=== PATIENT | male | born 1970 | race Caucasian/White ===

== ENCOUNTER 2021-08-25 12:54 | Inpatient (IN) | payer OTHER ==
[~2021-08-25] VITALS: Ht 175.3 cm; Wt 105.2 kg
--- NOTE | 2021-08-25 12:54 | NUR ---
PT BIBPA FROM [facility] C/O DIARRHEA AND LOSS OF APPETITE. COVID + 08/21/2021. PT IS AAOX4, NOT IN RESPIRATORY DISTRESS, V/S STABLE, KEPT RESTED AND COMFORTABLE. WILL CONTINUE TO MONITOR.
[2021-08-25] MEDS ORDERED: VITA1TAB56 PO (12:58)
[2021-08-25] MEDS ORDERED: SACU1TAB7 PO (12:58)
[2021-08-25] MEDS ORDERED: FURO-144 PO (12:58)
[2021-08-25] MEDS ORDERED: ASPI-1169 PO (12:58)
[2021-08-25] MEDS ORDERED: CARV6.252 PO (12:58)
[2021-08-25] MEDS ORDERED: SPIR25TA6 PO (12:58)
[2021-08-25] MEDS ORDERED: ATOR10TA PO (12:58)
--- NOTE | 2021-08-25 13:00 | NUR ---
POX 98% ON 3L N/C
--- NOTE | 2021-08-25 13:40 | NUR ---
MOVE SHEET SUBMITTED AND CALLED FOR TELE BED.
[2021-08-25] MEDS ORDERED: DEXAMETHASONE SOD PHOSPHATE 6 MG in IV D5W 50 ML IV ONE (14:00)
[2021-08-25] MEDS ORDERED: DEXAMETHASONE SOD PHOSPHATE 4 MG/ML VIAL IV ONE (14:00)
[2021-08-25] MEDS ORDERED: DEXAMETHASONE SOD PHOSPHATE 10 MG/ML VIAL ONE (14:06)
[2021-08-25] MEDS ORDERED: CEFTRIAXONE 1 G in IV D5W 50 ML IV ONE (14:30)
[2021-08-25 14:40] LABS: BASOPHILS % (AUTO) 0.3 % (0.0-2.0); EOSINOPHILS % (AUTO) 0.3 % (0.0-6.0); HEMATOCRIT 41 % (39-51); HEMOGLOBIN 13.1 g/dL (13.5-17.5); LYMPHOCYTES % (AUTO) 15.4 % (20.0-44.0); MEAN CORPUSCULAR HGB CONC 32 g/dl (31.0-36.0); MEAN CORPUSCULAR VOLUME 80 fL (80-96); MONOCYTES # (AUTO) 0.6 K/uL (0.1-1.30); MONOCYTES % (AUTO) 9.1 % (2.0-12.0); NEUTROPHILS # (AUTO) 4.8 K/uL (1.8-8.9); NEUTROPHILS % (AUTO) 74.9 % (43.0-81.0); PLATELET COUNT (AUTO) 142 K/uL (150-450); RED BLOOD CELL COUNT(AUTO) 5.05 MIL/uL (4.5-6.0); WHITE BLOOD COUNT (AUTO) 6.4 K/uL (4.3-11.0)
[2021-08-25 15:01] LABS: CALCIUM, SERUM 8.4 mg/dL (8.5-10.1); CARBON DIOXIDE 26 mmol/L (21-32); CHLORIDE 97 mmol/L (98-107); POTASSIUM 4.1 mmol/L (3.5-5.1); SODIUM SERUM 133 mmol/L (136-145); UREA NITROGEN, BLOOD 30 mg/dL (7-18)
[2021-08-25 15:04] LABS: CREATINE KINASE, TOTAL 79 U/L (39-308)
[2021-08-25 15:07] LABS: GLUCOSE 366 mg/dL (74-106)
[2021-08-25 15:13] LABS: ALANINE AMINOTRANSFERASE 25 U/L (12-78); ALKALINE PHOSPHATASE 78 U/L (46-116); ASPARTATE AMINOTRANSFERASE 24 U/L (15-37); BILIRUBIN,TOTAL 0.6 mg/dL (0.2-1.0); TOTAL PROTEIN, SERUM 7.5 g/dL (6.4-8.2)
--- NOTE | 2021-08-25 15:31 | NUR ---
URINE COLLECTED AND SENT TO LAB
--- NOTE | 2021-08-25 15:38 | NUR ---
bs 366. aware
[2021-08-25] MEDS ORDERED: ACETAMINOPHEN 325 MG TABLET PO PRN (16:00)
[2021-08-25] MEDS ORDERED: *INSULIN REGULAR(HUMULIN R)HUM 100 UNIT/ML VIAL SQ PRN (16:00)
[2021-08-25] MEDS ORDERED: DEXTROSE 50%-WATER 50 ML DISP.SYRIN IV PRN (16:00)
[2021-08-25] MEDS ORDERED: ONDANSETRON HCL/PF 4 MG/2 ML VIAL IVP PRN (16:00)
[2021-08-25] MEDS ORDERED: IV NS 0.9% 1,000 ML BAG IV ONE (16:00)
[2021-08-25] MEDS ORDERED: INSULIN REGULAR, HUMAN 100 UNIT/ML 10 ML VIAL SQ ONE (16:00)
[2021-08-25] MEDS ORDERED: INSULIN REGULAR, HUMAN 100 UNIT/ML 10 ML VIAL ONE (16:32)
--- NOTE | 2021-08-25 17:01 | NUR ---
BED 117-1
--- NOTE | 2021-08-25 17:01 | NUR ---
117-1. PRIMARY RN AWARE.
--- NOTE | 2021-08-25 17:30 | NUR ---
REPORT GIVEN TO ROLO SANDS
--- NOTE | 2021-08-25 17:38 | NUR ---
PT TRANSFERRED TO FLOOR FOLLOWING ACLS PROTOCL. WITH RN AND EMT.
--- NOTE | 2021-08-25 18:00 | NUR ---
RN ADMITTING NOTES RECEIVED PATIENT FROM ER DEPT VIA [facility]. PATIENT DX OF CIVD 19 PNA, HYPOXIA, RENAL INSUFFICIENCY. PATIENT ABLE TO AMBULATE TO BED FROM [facility]. PATIENT IS AWAKE, ALERT/ORIENTED X 4, ABLE TO MAKE NEEDS KNOWN. ON O2 2LPM VIA NC, TOLERATING WELL SATTING AT 97%. VITAL SIGNS: TEMP-98.3, BP-125/71, HR-89, RR-19. BREATHING EVEN AND UNLABORED. NO SOB OR ANY DISTRESS NOTED AT THE TIME. PATIENT HAS PACEMAKER ON LEFT UPPER CHEST. PATIENT NOTED WITH REDNESS ON LEFT/RIGHT GROIN. SKIN INTACT. IV ACCESS ON LEFT HAND #20G, FLUSHED PATENT AND INTACT. ALL APPLICABLE ISOLATION PRECAUTIONS IN PLACE. ALL SAFETY MEASURES IN PLACE. BED LOCKED AND IN LOWEST POSITION WITH SIDERAILS UP, CALL LIGHT WITHIN REACH. WILL CONTINUE TO MONITOR PATIENT ACCORDINGLY.
[2021-08-25] MEDS: DEXAMETHASONE SOD PHOSPHATE 10 MG/ML VIAL IV SCH (18:24)
[2021-08-25] MEDS: CARVEDILOL 6.25 MG TABLET PO SCH (18:24)
[2021-08-25] MEDS: HEPARIN SODIUM, PORCINE 5000 UNITS/1 ML VIAL SQ SCH (18:25)
--- NOTE | 2021-08-25 18:30 | NUR ---
RN NOTE CALLED PHARMACY FOR INSULIN, PER PHARMACY WILL BRING TO UNIT.
[2021-08-25] MEDS: BLOOD SUGAR DIAGNOSTIC 1 EACH STRIP VI SCH ×2 (18:49→22:04)
[2021-08-25] MEDS ORDERED: CEFTRIAXONE 1 G in IV D5W 50 ML IV SCH (19:00)
--- NOTE | 2021-08-25 19:30 | NUR ---
IT SALES REPRESENTATIVEVP ANCILLARY/OPENING NOTE RECEIVED PATIENT ALREADY IN ROOM. NO S/S OF APPARENT DISTRESS ON 2LPM OF O2 VIA NC, DENIES SOB. DENIES PAIN. ID BAND ON PATIENT. INTACT SKIN. BELONGINGS LIST CHECKED AND SIGNED. WISHES TO BE FULL CODE. TELE MONITOR READING SR WITH PVC'S 84 BPM. PATIENT DENIES SMOKING AND ANY SUBSTANCE ABUSE. PER PATIENT HE IS VACCINATED WITH PNU VACCINE LAST YEAR BUT NOT FLU AND COVID. WILL DO THE ADMISSION PROCESS AND FOLLOW THROUGH DOCTOR'S ORDERS. NEEDS ATTENDED AT THIS TIME.
--- NOTE | 2021-08-25 19:32 | NUR ---
RN CLOSING NOTES PATIENT REMAINS IN STABLE CONDITION THROUGHOUT. BREATHING EVEN AND UNLABORED. NO SOB OR ANY ACUTE DISTRESS NOTED. ON O2 2LPM VIA NC, TOLERATING WELL. IV ACCESS ON LEFT HAND, PATENT AND INTACT. NO SIGNS OF INFILTRATIONS. ALL DUE MEDS GIVEN ORDERED. KEPT PATIENT CLEAN, DRY AND COMFORTABLE. ALL NEEDS ATTENDED. ALL APPLICABLE ISOLATION PRECAUTIONS IN PLACE. ALL SAFETY MEASURES MAINTAINED. BED LOCKED AND IN LOWEST POSITION WITH SIDERAILS UP. CALL LIGHT WITHIN REACH. ENDORSED TO ONCOMING NURSE FOR KAREN. Addendum: 08/25/21 at 1933 by WICHO COFFEY RN STILL AWAITING FOR PHARMACY TO BRING INSULIN, ENDORSED TO ONCOMING NURSE.
[2021-08-25 22:48] LABS: BILIRUBIN,URINE MODERATE (NEGATIVE); COLOR,URINE YELLOW (YELLOW); LEUKOCYTE ESTERASE ,URINE NEGATIVE (NEGATIVE); NITRITE, URINE NEGATIVE (NEGATIVE); PROTEIN,URINE 100 mg/dl (NEGATIVE); UGLUCOSE 500 MG/DL mg/dL (NEGATIVE)
[2021-08-26 07:14] LABS: BASOPHILS % (AUTO) 0.2 % (0.0-2.0); HEMATOCRIT 41 % (39-51); HEMOGLOBIN 13.3 g/dL (13.5-17.5); LYMPHOCYTES # (AUTO) 0.8 K/uL (0.8-4.8); LYMPHOCYTES % (AUTO) 16.8 % (20.0-44.0); MEAN CORPUSCULAR HGB CONC 32 g/dl (31.0-36.0); MEAN CORPUSCULAR VOLUME 80 fL (80-96); MONOCYTES # (AUTO) 0.3 K/uL (0.1-1.30); MONOCYTES % (AUTO) 6.3 % (2.0-12.0); NEUTROPHILS # (AUTO) 3.9 K/uL (1.8-8.9); NEUTROPHILS % (AUTO) 76.7 % (43.0-81.0); PLATELET COUNT (AUTO) 144 K/uL (150-450); RED BLOOD CELL COUNT(AUTO) 5.11 MIL/uL (4.5-6.0)
--- NOTE | 2021-08-26 07:15 | NUR ---
RN OPENING NOTES RECEIVED PATIENT IN BED AWAKE, ALERT/ORIENTED X 4, ABLE TO MAKE NEEDS KNOWN. ON O2 2LPM VIA NC. BREATHING EVEN AND UNLABORED. NO SOB OR ANY DISTRESS NOTED AT THE TIME. DENIES ANY PAIN/DISCOMFORT AT THE TIME. IV ACCESS ON LEFT HAND #20G, FLUSHED PATENT AND INTACT. ALL APPLICABLE ISOLATION PRECAUTIONS IN PLACE. ALL SAFETY MEASURES IN PLACE. BED LOCKED AND IN LOWEST POSITION WITH SIDERAILS UP, CALL LIGHT WITHIN REACH. WILL CONTINUE TO MONITOR PATIENT ACCORDINGLY.
--- NOTE | 2021-08-26 07:25 | NUR ---
FIELD SCOUT CLOSING NOTE PATIENT IN BED WITH EYES CLOSED, EASY TO AROUSE. NO S/S OF APPARENT DISTRESS ON ROOM AIR. TELE MONITOR READING SR. NO C/O PAIN AT THIS TIME. NO FLUIDS RUNNING AT THIS TIME. SAFETY KEPT IN PLACE THE WHOLE SHIFT. ALL NEEDS ATTENDED. ALL SCHEDULED MEDICATIONS ADMINISTERED. ISOLATION STRICTLY FOLLOWED. WILL ENDORSE TO MORNING SHIFT RN FOR CONTINUITY OF CARE.
[2021-08-26 07:37] LABS: BACTERIA,URINE Rare /HPF (None Seen); CALCIUM OXALATE CRYSTALS,UR Few /HPF (None Seen); SQUAMOUS EPITHELIAL CELL,UR Rare /HPF (None Seen); WBC,URINE 0-2 /HPF (0-3)
[2021-08-26 07:38] LABS: URINE AMORPHOUS URATE Few /HPF (None Seen)
[2021-08-26 07:42] LABS: ALBUMIN 2.9 g/dL (3.4-5.0); BILIRUBIN,TOTAL 0.4 mg/dL (0.2-1.0); CALCIUM, SERUM 9.3 mg/dL (8.5-10.1); CREATININE 1.6 mg/dL (0.6-1.3); PHOSPHORUS 4.3 mg/dL (2.5-4.9); POTASSIUM 4.4 mmol/L (3.5-5.1); TOTAL PROTEIN, SERUM 7.6 g/dL (6.4-8.2)
[2021-08-26 07:49] LABS: THYROID STIMULATING HORMONE 0.481 uIU/mL (0.358-3.74)
[2021-08-26] MEDS: BLOOD SUGAR DIAGNOSTIC 1 EACH STRIP VI SCH ×2 (07:52→11:41)
[2021-08-26] MEDS: INSULIN REGULAR, HUMAN 100 UNIT/ML 3 ML VIAL SQ PRN ×2 (07:54→11:43)
[2021-08-26 08:00] VITALS: BP 141/93
[2021-08-26] MEDS: VITAMIN B COMP W-C 1 TAB TABLET PO SCH (08:53)
[2021-08-26] MEDS: CARVEDILOL 6.25 MG TABLET PO SCH ×2 (08:53→16:39)
[2021-08-26] MEDS: ATORVASTATIN 10 MG TABLET PO SCH (08:53)
[2021-08-26] MEDS: FUROSEMIDE 40 MG TABLET PO SCH (08:53)
[2021-08-26] MEDS: SPIRONOLACTONE 25 MG TABLET PO SCH (08:53)
[2021-08-26] MEDS: ASPIRIN 81 MG TAB.CHEW PO SCH (08:53)
[2021-08-26] MEDS: ENTRESTO PO SCH ×2 (08:54→16:39)
[2021-08-26] MEDS: DEXAMETHASONE SOD PHOSPHATE 10 MG/ML VIAL IV SCH ×2 (08:54→16:39)
[2021-08-26] MEDS: HEPARIN SODIUM, PORCINE 5000 UNITS/1 ML VIAL SQ SCH ×2 (08:55→16:40)
[2021-08-26 12:00] VITALS: BP 135/81
[2021-08-26] MEDS: CEFTRIAXONE 1 G in IV D5W 50 ML IV SCH (12:05)
[2021-08-26] MEDS ORDERED: DEXTROSE 50%-WATER 50 ML DISP.SYRIN IV PRN (12:30)
--- NOTE | 2021-08-26 14:03 | NUR ---
SS Consult: SS consult for homelessness. Pt. Is a 51-year-old male. Pt. demonstrates adequate insight to the reason for hospitalization. Per pt., he was brought to hospital by ambulance due to pneumonia and COVID positive. Pt. was oriented x4, alert, and cooperative. During interview, pt. was capable of following directions, made appropriate eye-contact, and appeared well-groomed. Pt.s speech was at a normal rate. Pt.s mood was elevated. SW explored pt.s hx of mental health and substance abuse. Pt. reported no hx of mental health, substance abuse, suicidal or homicidal ideation. Pt. denies auditory hallucinations, visual hallucinations, paranoia, or delusions. SW explored pt.s living situation. Per pt., he lives at a halfway [, [address] [place] [address]. [place] [address]]. Pt. mentioned that he has been staying at the halfway since February of 2021. Per pt., since he tested positive for COVID, the halfway sent him to [facility] to stay until he test negative. While his stay at the [facility], his oxygen levels were low, so they sent him to the hospital. Pt. stated that he is feeling better. Per pt., he reports having adequate support from his son Akil [[phone]]. Plan: SW provided available resources and pt. rejects interest at this time. Once discharge, per pt., he will return to [facility]. Homeless waiver was signed and placed in pt.s chart.
[2021-08-26] MEDS ORDERED: REMDESIVIR (CHARGED) 200 MG, *LOADING DOSE 1 EA in IV NS 0.9% 210 ML IV ONE (15:00)
[2021-08-26] MEDS: AZITHROMYCIN 250 MG TABLET PO SCH (15:06)
[2021-08-26 16:00] VITALS: BP 112/65
[2021-08-26 16:20] LABS: FERRITIN 701 ng/mL (8-388)
[2021-08-26] MEDS: BLOOD SUGAR DIAGNOSTIC 1 EACH STRIP IN SCH ×2 (17:56→21:57)
[2021-08-26] MEDS: *INSULIN REGULAR(HUMULIN R)HUM 100 UNIT/ML VIAL SQ PRN ×2 (17:58→21:51)
--- NOTE | 2021-08-26 18:30 | NUR ---
RN CLOSING NOTES PATIENT REMAINS IN STABLE CONDITION THROUGHOUT SHIFT. PATIENT IN BED AWAKE, ALERT/ORIENTED X 4, ABLE TO MAKE NEEDS KNOWN. ON O2 2LPM VIA NC. BREATHING EVEN AND UNLABORED. NO SOB OR ANY DISTRESS NOTED AT THE TIME. DENIES ANY PAIN/DISCOMFORT AT THE TIME. ALL DUE MEDS GIVEN ORDERED. KEPT PATIENT CLEAN, DRY AND COMFORTABLE. ALL NEEDS ATTENDED. IV ACCESS ON LEFT HAND #20G, FLUSHED PATENT AND INTACT. ALL APPLICABLE ISOLATION PRECAUTIONS IN PLACE. ALL SAFETY MEASURES IN PLACE. BED LOCKED AND IN LOWEST POSITION WITH SIDERAILS UP, CALL LIGHT WITHIN REACH. WILL ENDORSE TO ONCOMING NURSE FOR CONTINUITY OF CARE.
--- NOTE | 2021-08-26 19:08 | NUR ---
RN NOTES RECEIVED REPORT FROM LABORATORY, PATIENT PCR TEST POSITIVE
--- NOTE | 2021-08-26 19:30 | NUR ---
RN OPENING NOTE PATIENT IN BED, A/O X 4. PATIENT AMBULATED TO BATHROOM. PATIENT HAS 2LPM VIA NC ON, TOLERATES WELL. NO REPORTS OF DYSPNEA. TELE MONITOR READS SR 83 BPM. ML HAND 20G PATENT AND INTACT, FLUSHES WELL. PATIENT ON ISOLATION PRECAUTION D/T POSITIVE COVID RESULT. NO COMPLAINTS OF PAIN AT THIS TIME. SAFETY MEASURES IN PLACE: BED LOCKED AND IN LOWEST POSITION, CALL LIGHT WITHIN REACH, SIDE RAILS UP. WILL CONTINUE TO MONITOR CLOSELY.
[2021-08-26 20:00] VITALS: BP 111/63
--- NOTE | 2021-08-26 22:00 | NUR ---
RN NOTE BS 360 MG/DL 10 UNITS INSULIN GIVEN FOR COVERAGE. WILL MONITOR FOR HYPO/HYPERGLYCEMIA.
[2021-08-27] VITALS: BP 114/82
[2021-08-27 04:00] VITALS: BP 126/78
[2021-08-27 06:50] LABS: BASOPHILS % (AUTO) 0.2 % (0.0-2.0); HEMATOCRIT 40 % (39-51); HEMOGLOBIN 13.1 g/dL (13.5-17.5); MEAN CORPUSCULAR HGB CONC 33 g/dl (31.0-36.0); MEAN CORPUSCULAR VOLUME 80 fL (80-96); MONOCYTES # (AUTO) 0.6 K/uL (0.1-1.30); MONOCYTES % (AUTO) 5.8 % (2.0-12.0); PLATELET COUNT (AUTO) 184 K/uL (150-450); WHITE BLOOD COUNT (AUTO) 9.5 K/uL (4.3-11.0)
--- NOTE | 2021-08-27 07:01 | NUR ---
RN CLOSING NOTE PATIENT IN BED, A/O X 4 SLEEPING BUT EASILY AWAKENED. PATIENT HAS 2LPM VIA NC ON, TOLERATES WELL. NO REPORTS OF DYSPNEA. TELE MONITOR READS SR 85 BPM. L HAND 20G PATENT AND INTACT, FLUSHES WELL. NO COMPLAINTS OF PAIN AT THIS TIME. PATIENT GIVEN COLLECTION CUP FOR STOOL CX. SAFETY MEASURES IN PLACE: BED LOCKED AND IN LOWEST POSITION, CALL LIGHT WITHIN REACH, SIDE RAILS UP. ALL NEEDS MET AND ATTENDED, ALL ORDERS CARRIED OUT. WILL ENDORSE TO DAY SHIFT NURSE FOR KAREN.
[2021-08-27 07:17] LABS: ALBUMIN 2.8 g/dL (3.4-5.0); BILIRUBIN,DIRECT 0.1 mg/dL (0.0-0.2); BILIRUBIN,TOTAL 0.2 mg/dL (0.2-1.0); CALCIUM, SERUM 8.5 mg/dL (8.5-10.1); CREATININE 1.4 mg/dL (0.6-1.3); MAGNESIUM 2.7 mg/dL (1.8-2.4); PHOSPHORUS 4.7 mg/dL (2.5-4.9); POTASSIUM 3.9 mmol/L (3.5-5.1); TOTAL PROTEIN, SERUM 7.4 g/dL (6.4-8.2)
--- NOTE | 2021-08-27 07:45 | NUR ---
TRUCK CHAUFFEUR OPENING NOTE Patient in bed, awake. A/O x 4, able to make needs known. On O2 at 2 LPM via NC, breathing evenly and unlabored. No SOB or s/s of distress noted. IV access on Left hand #20G SL, intact and patent. On tele monitoring showing SR, HR 100. Safety precautions in place: bed in low, locked position; siderails up x 2; call light within reach. Will continue to monitor.
[2021-08-27 08:00] VITALS: BP 115/76
[2021-08-27] MEDS: BLOOD SUGAR DIAGNOSTIC 1 EACH STRIP IN SCH ×4 (08:48→21:28)
[2021-08-27] MEDS: FUROSEMIDE 40 MG TABLET PO SCH (08:49)
[2021-08-27] MEDS: SPIRONOLACTONE 25 MG TABLET PO SCH (08:49)
[2021-08-27] MEDS: ATORVASTATIN 10 MG TABLET PO SCH (08:49)
[2021-08-27] MEDS: VITAMIN B COMP W-C 1 TAB TABLET PO SCH (08:49)
[2021-08-27] MEDS: ASPIRIN 81 MG TAB.CHEW PO SCH (08:49)
[2021-08-27] MEDS: ENTRESTO PO SCH ×2 (08:50→16:56)
[2021-08-27] MEDS: HEPARIN SODIUM, PORCINE 5000 UNITS/1 ML VIAL SQ SCH ×2 (08:50→16:57)
[2021-08-27] MEDS: INSULIN REGULAR, HUMAN 100 UNIT/ML 3 ML VIAL SQ PRN ×3 (08:52→16:58)
[2021-08-27] MEDS: DEXAMETHASONE SOD PHOSPHATE 10 MG/ML VIAL IV SCH ×2 (09:01→16:56)
[2021-08-27] MEDS: CARVEDILOL 6.25 MG TABLET PO SCH ×2 (09:02→16:56)
[2021-08-27] MEDS: BLOOD SUGAR DIAGNOSTIC 1 EACH STRIP VI SCH ×4 (09:24→21:36)
[2021-08-27 10:17] LABS: ABG BASE EXCESS -1.5 mmol/L; ABG PCO2 43.3 mmHg (35.0-45.0); ABG PH 7.362 (7.350-7.450); ABG PO2 61.3 mmHg (75.0-100.0); AaDO2 36.6 mmHg; COHb 0.4 % (0.5-1.5); MetHb 0.2 % (0.0-1.5); O2Hb 91.4 % (94.0-97.0); SITE, ABG Right Radial; VENT MODE, BG ROOM AIR
--- NOTE | 2021-08-27 10:27 | NUR ---
DC PLAN: MARIBEL called senior care [[facility], [address] [place] [address]; [phone]] to determine if they will accept pt. back after discharge. They stated that the pt. can return as long as he can provide proof of negative COVID test result. [facility] cannot assist with transport. SW will provide pt. with TAP card & bus route to[[facility], [address] [place] [address]; [phone]]. MARIBEL notified above stated information to Mallika TINSLEY. MARIBEL spoke with [facility] who stated there is no DC order at this time. MARIBEL will follow up when pt. is ready for DC.
[2021-08-27 12:00] VITALS: BP 111/65
[2021-08-27] MEDS: CEFTRIAXONE 1 G in IV D5W 50 ML IV SCH (12:32)
[2021-08-27] MEDS: REMDESIVIR (CHARGED) 100 MG in IV NS 0.9% 100 ML IV SCH (15:22)
[2021-08-27 16:00] VITALS: BP 108/66
[2021-08-27] MEDS: AZITHROMYCIN 250 MG TABLET PO SCH (16:56)
--- NOTE | 2021-08-27 19:00 | NUR ---
LAW FIRM RECEPTIONIST CLOSING NOTE Patient in bed, resting comfortably. A/O x 4, able to make needs known. On O2 at 2 LPM via NC, breathing evenly and unlabored. No SOB or s/s of distress noted. IV access on Left hand #20G SL, intact and patent. On tele monitoring showing SR, HR 79. All needs attended to. Due meds given. Safety precautions maintained: bed in low, locked position; siderails up x 2; call light within reach. Will endorse to shift manager nurse for KAREN.
[2021-08-27 20:00] VITALS: BP 124/77
[2021-08-27] MEDS: *INSULIN REGULAR(HUMULIN R)HUM 100 UNIT/ML VIAL SQ PRN (21:30)
[2021-08-28] VITALS: BP 127/83
[2021-08-28 04:00] VITALS: BP 143/90
--- NOTE | 2021-08-28 07:00 | NUR ---
RN CLOSING NOTES PATIENT ASLEEP IN BED, ON 2LPM VIA NC WITH >94% O2 SAT LEVEL THROUGHOUT THE NIGHT, NO SOB/ACUTE DISTRESS NOTED, NSR IN TELE MONITOR, BRP PRIVILEGES, NO EPISODES OF DESATURATION NOTED, NO SIGNIFICANT CHANGE IN CONDITION DURING THE NIGHT, ALL SAFETY MEASURES IN PLACE, BED IN LOW AND LOCK POSITION, CALL LIGHT WITHIN REACH, SIDE RAILS UP X2, WILL ENDORSE CONTINUITY OF CARE TO ONCOMING NURSE
--- NOTE | 2021-08-28 07:40 | NUR ---
RN OPENING NOTES Patient seen comfortably lying in bed, no apparent distress noted, respirations even and unlabored, no SOB, denies any pain or discomfort at this time, no grimacing. Call light left within reach, safety precautions in place, brakes locked, side rails up X 2, will monitor closely for any changes.
[2021-08-28 08:00] VITALS: BP 115/79
[2021-08-28] MEDS: BLOOD SUGAR DIAGNOSTIC 1 EACH STRIP IN SCH ×4 (08:02→21:53)
[2021-08-28] MEDS: BLOOD SUGAR DIAGNOSTIC 1 EACH STRIP VI SCH ×4 (08:03→22:00)
[2021-08-28 08:12] LABS: ALBUMIN 2.8 g/dL (3.4-5.0); BILIRUBIN,DIRECT 0.1 mg/dL (0.0-0.2); BILIRUBIN,TOTAL 0.3 mg/dL (0.2-1.0); TOTAL PROTEIN, SERUM 7.3 g/dL (6.4-8.2)
[2021-08-28] MEDS: ATORVASTATIN 10 MG TABLET PO SCH (08:39)
[2021-08-28] MEDS: ENTRESTO PO SCH ×2 (08:39→17:24)
[2021-08-28] MEDS: VITAMIN B COMP W-C 1 TAB TABLET PO SCH (08:40)
[2021-08-28] MEDS: CARVEDILOL 6.25 MG TABLET PO SCH ×2 (08:40→17:25)
[2021-08-28] MEDS: FUROSEMIDE 40 MG TABLET PO SCH (08:40)
[2021-08-28] MEDS: ASPIRIN 81 MG TAB.CHEW PO SCH (08:40)
[2021-08-28] MEDS: DEXAMETHASONE SOD PHOSPHATE 10 MG/ML VIAL IV SCH ×2 (08:41→17:23)
[2021-08-28] MEDS: SPIRONOLACTONE 25 MG TABLET PO SCH (08:43)
[2021-08-28] MEDS: INSULIN REGULAR, HUMAN 100 UNIT/ML 3 ML VIAL SQ PRN ×3 (08:47→17:26)
[2021-08-28] MEDS: HEPARIN SODIUM, PORCINE 5000 UNITS/1 ML VIAL SQ SCH ×2 (08:49→17:25)
[2021-08-28 12:00] VITALS: BP 125/75
[2021-08-28] MEDS: CEFTRIAXONE 1 G in IV D5W 50 ML IV SCH (12:02)
--- NOTE | 2021-08-28 12:18 | NUR ---
SW spoke with pt. and he stated that he wants to go back to [facility] once discharged. Pt. stated that he needs to go back to the [facility] to get his belongings. MARIBEL spoke with [facility] [[facility] [phone]], and he stated that the hospital needs to arrange transportation to the hotel, so pt. can get his belongings. Once pt. gets to the hotel, the assisted is able to get pt. from there.
[2021-08-28] MEDS: REMDESIVIR (CHARGED) 100 MG in IV NS 0.9% 100 ML IV SCH (15:33)
[2021-08-28 16:00] VITALS: BP 115/73
--- NOTE | 2021-08-28 18:39 | NUR ---
RN CLOSING NOTES Patient lying in bed, no shortness of breath, respirations even and unlabored, no apparent distress noted, no dizziness, no palpitations, no chest pain during shift. All due medications given per MD order, tolerating well. Insulin given per sliding scale per MD order, no s/s of hypo or hyperglycemia, no tremors, no change in level of consciousness. Aspiration precautions observed at all times, kept head of bed elevated, all needs anticipated, kept clean and dry, safety precautions in place, frequent visual checks rendered, side rails up X 2, brakes locked, call light left within reach, will endorse to next shift for continuity of care.
--- NOTE | 2021-08-28 19:21 | NUR ---
RN OPENING NOTES Received patient in bed A/O X4. No distress noted, respirations even and unlabored, no SOB, denies any pain or discomfort at this time, no grimacing. IV site on left hand noted. Patient on O2 AT 2L via nasal canula. Call light left within reach, safety precautions in place, brakes locked, side rails up X 2, will continue to monitor patient.
[2021-08-28 20:00] VITALS: BP 125/69
[2021-08-28] MEDS: *INSULIN REGULAR(HUMULIN R)HUM 100 UNIT/ML VIAL SQ PRN (21:56)
[2021-08-28] MEDS ORDERED: INSULIN GLARGINE, 100 UNIT/ML CARTRIDGE SQ SCH (22:00)
[2021-08-29] VITALS: BP 106/67
[2021-08-29 04:00] VITALS: BP 120/76
--- NOTE | 2021-08-29 06:23 | NUR ---
ROLO LOUISE FROM [facility] CALLED TO GET AN UPDATE ON THE PATIENT.
--- NOTE | 2021-08-29 06:27 | NUR ---
RN CLOSING NOTES, NO CHANGES THROUGHOUT THE NIGHT, KEPT PATIENT CLEAN AND DRY THROUGHOUT THE NIGHT. WILL ENDORSE PLAN OF CARE TO AM NURSE.
[2021-08-29 07:14] LABS: ALBUMIN 2.8 g/dL (3.4-5.0); BILIRUBIN,DIRECT 0.2 mg/dL (0.0-0.2); BILIRUBIN,TOTAL 0.3 mg/dL (0.2-1.0); TOTAL PROTEIN, SERUM 7.1 g/dL (6.4-8.2)
[2021-08-29] MEDS: BLOOD SUGAR DIAGNOSTIC 1 EACH STRIP VI SCH ×4 (07:30→22:30)
[2021-08-29 08:00] VITALS: BP 144/98
[2021-08-29] MEDS: FUROSEMIDE 40 MG TABLET PO SCH (08:35)
[2021-08-29] MEDS: VITAMIN B COMP W-C 1 TAB TABLET PO SCH (08:35)
[2021-08-29] MEDS: SPIRONOLACTONE 25 MG TABLET PO SCH (08:35)
[2021-08-29] MEDS: ASPIRIN 81 MG TAB.CHEW PO SCH (08:35)
[2021-08-29] MEDS: DEXAMETHASONE SOD PHOSPHATE 10 MG/ML VIAL IV SCH ×2 (08:35→16:46)
[2021-08-29] MEDS: ATORVASTATIN 10 MG TABLET PO SCH (08:36)
[2021-08-29] MEDS: CARVEDILOL 6.25 MG TABLET PO SCH ×2 (08:36→16:46)
[2021-08-29] MEDS: HEPARIN SODIUM, PORCINE 5000 UNITS/1 ML VIAL SQ SCH ×2 (08:37→17:14)
[2021-08-29] MEDS: ENTRESTO PO SCH ×2 (08:40→16:51)
--- NOTE | 2021-08-29 08:40 | NUR ---
ms rn received on bed, awake,alert,oriented x4,not in any form of distress, respirations even and unlabored,no sob noted, lung are diminished,abdomen soft,positive bowel sounds denies pain at this time, all needs attended.
[2021-08-29] MEDS: BLOOD SUGAR DIAGNOSTIC 1 EACH STRIP IN SCH ×4 (08:41→22:18)
[2021-08-29] MEDS: INSULIN REGULAR, HUMAN 100 UNIT/ML 3 ML VIAL SQ PRN ×3 (08:42→17:45)
--- NOTE | 2021-08-29 08:50 | NUR ---
ms field breakfast served,due meds given,tolerated well.
[2021-08-29 12:00] VITALS: BP 118/85
--- NOTE | 2021-08-29 12:30 | NUR ---
ms rn bs= [id number] but patient ate already, md aware, covered 20 units of insulin will monitor patient.
[2021-08-29 16:00] VITALS: BP 125/83
[2021-08-29] MEDS: REMDESIVIR (CHARGED) 100 MG in IV NS 0.9% 100 ML IV SCH (16:45)
--- NOTE | 2021-08-29 19:00 | NUR ---
ms rn on bed no distrrss noted.
--- NOTE | 2021-08-29 19:10 | NUR ---
RN OPENING NOTES RECEIVED PT IN BED, A/O X 4, RESPIRATORY EVEN AND UNLABORED, NO SOB NOTED, NO S/S OF DISTRESS NOTED . PATIENT ON NASAL CANULA @ 2 LPM. PATIENT NOTED WITH LEFT HAND #20 IV LINE, PATENT, INTACT AND FLUSHED WITH NS. ALL SAFETY MEASURES PROVIDED. BED IN LOWEST POSITION, LOCKED, BED ALARM ARMED. CALL LIGHT WITHIN REACH. WILL CONTINUE TO MONITOR.
[2021-08-29 20:00] VITALS: BP 120/71
[2021-08-29] MEDS ORDERED: INSULIN GLARGINE, 100 UNIT/ML CARTRIDGE SQ SCH (22:00)
[2021-08-29] MEDS: *INSULIN REGULAR(HUMULIN R)HUM 100 UNIT/ML VIAL SQ PRN (22:22)
[2021-08-30] VITALS: BP 112/74
[2021-08-30 04:00] VITALS: BP 137/82
[2021-08-30 07:02] LABS: ALBUMIN 3.1 g/dL (3.4-5.0); BILIRUBIN,DIRECT 0.1 mg/dL (0.0-0.2); BILIRUBIN,TOTAL 0.3 mg/dL (0.2-1.0); TOTAL PROTEIN, SERUM 7.9 g/dL (6.4-8.2)
--- NOTE | 2021-08-30 07:07 | NUR ---
RN CLOSING NOTES PATIENT REMAIN STABLE THROUGH OUT THE SHIFT, RESPIRATORY EVEN AND UNLABORED, NO SOB NOTED, NO S/S OF DISTRESS NOTED. ALL SAFETY MEASURES PROVIDED. BED IN LOWEST POSITION, LOCKED, BED ALARM ARMED. CALL LIGHT WITHIN REACH.
[2021-08-30] MEDS: BLOOD SUGAR DIAGNOSTIC 1 EACH STRIP VI SCH ×2 (07:30→12:00)
[2021-08-30 08:00] VITALS: BP 125/81
[2021-08-30] MEDS: BLOOD SUGAR DIAGNOSTIC 1 EACH STRIP IN SCH ×3 (08:43→17:20)
[2021-08-30] MEDS: DEXAMETHASONE SOD PHOSPHATE 10 MG/ML VIAL IV SCH ×2 (08:44→17:14)
[2021-08-30] MEDS: ASPIRIN 81 MG TAB.CHEW PO SCH (08:44)
[2021-08-30] MEDS: ATORVASTATIN 10 MG TABLET PO SCH (08:44)
[2021-08-30] MEDS: SPIRONOLACTONE 25 MG TABLET PO SCH (08:44)
[2021-08-30] MEDS: CARVEDILOL 6.25 MG TABLET PO SCH ×2 (08:44→17:14)
[2021-08-30] MEDS: FUROSEMIDE 40 MG TABLET PO SCH (08:44)
[2021-08-30] MEDS: VITAMIN B COMP W-C 1 TAB TABLET PO SCH (08:44)
[2021-08-30] MEDS: HEPARIN SODIUM, PORCINE 5000 UNITS/1 ML VIAL SQ SCH ×2 (08:45→17:20)
[2021-08-30] MEDS: ENTRESTO PO SCH ×2 (08:56→17:14)
[2021-08-30] MEDS: *INSULIN REGULAR(HUMULIN R)HUM 100 UNIT/ML VIAL SQ PRN (11:59)
[2021-08-30 12:00] VITALS: BP 123/84
[2021-08-30] MEDS: REMDESIVIR (CHARGED) 100 MG in IV NS 0.9% 100 ML IV SCH (14:35)
[2021-08-30] MEDS ORDERED: RIVA10TA PO (14:40)
[2021-08-30] MEDS ORDERED: DEXA4TAB PO (14:40)
--- NOTE | 2021-08-30 15:23 | NUR ---
SW spoke with pt. regarding discharge plan. SW provided pt. with TAP card and directions to [facility]. Pt. spoke with [facility], and they stated that they are able to set up transportation for pt. from [facility], but the [facility] needs a medically clearance note. Pt.'s nurse took a rapid COVID test, awaiting for results.
[2021-08-30] MEDS ORDERED: METF-440 PO (15:50)
[2021-08-30 17:14] VITALS: BP 123/81
== END 2021-08-30 17:40 | disposition home or self-care (01) | DRG 137 ==
LOC: ER 12:57 → TRANSITION 16:54 → TELE1 17:01
PROVIDERS: ADMIT Registered Nurse; ATTEND Nurse Practitioner Acute Care
PROC: XW033E5 Introduction of Remdesivir Anti-infective into Peripheral Vein, Percutaneous Approach, New Technology Group 5 (ICD-10-PCS; principal; 2021-08-26)
DX: U07.1 COVID-19 (principal); J96.01 Acute respiratory failure with hypoxia; J12.82 Pneumonia due to coronavirus disease 2019; N17.9 Acute kidney failure, unspecified; D69.6 Thrombocytopenia, unspecified; I50.9 Heart failure, unspecified; I13.0 Hypertensive heart and chronic kidney disease with heart failure and stage 1 through stage 4 chronic kidney disease, or unspecified chronic kidney disease; E11.22 Type 2 diabetes mellitus with diabetic chronic kidney disease; E11.65 Type 2 diabetes mellitus with hyperglycemia; E78.5 Hyperlipidemia, unspecified; N18.9 Chronic kidney disease, unspecified; Z95.0 Presence of cardiac pacemaker; R19.7 Diarrhea, unspecified; I25.10 Atherosclerotic heart disease of native coronary artery without angina pectoris; E66.01 Morbid (severe) obesity due to excess calories; Z68.34 Body mass index [BMI] 34.0-34.9, adult; B33.24 Viral cardiomyopathy; Z79.84 Long term (current) use of oral hypoglycemic drugs
CPT/HCPCS: 36415; 36600; 71045-TC; 71250-TC; 76770-TC; 80048-TC; 80053-TC; 80076-TC; 81001; 82550-TC; 82728-TC; 82803-TC; 82962-TC; 83605-TC; 83615-TC; 83735-TC; 83880; 84100-TC; 84443-TC; 84484-TC; 85025-TC; 85378-TC; 85610-TC; 85730-TC; 86140-TC; 87040-TC; 87045-TC; 87081-TC; 87086-TC; 87177; 87209; 93307-TC; A4216; G0378; J0696; J1100; J1644; J1815; J3490; J7030; J7050; J7060; U0003